=== PATIENT | female | born 1985 | race Caucasian/White ===

== ENCOUNTER 2018-04-15 07:26 | Emergency (ER) | payer OTHER ==
[~2018-04-15] VITALS: Ht 149.9 cm; Wt 45.3 kg
[2018-04-15] MEDS ORDERED: DESO1TAB PO (07:48)
[2018-04-15 08:19] LABS: BASOPHILS # (AUTO) 0.02 x10^3/uL (0-0.1); BASOPHILS % (AUTO) 0 % (0-1); EOSINOPHILS # (AUTO) 0.19 x10^3/uL (0-0.4); EOSINOPHILS % (AUTO) 3 % (1-7); LYMPHOCYTES # (AUTO) 2.64 x10^3/uL (1-3.4); LYMPHOCYTES % (AUTO) 43 % (22-44); MD NO; MEAN CORPUSCULAR HEMOGLOBIN 31.4 pg (27.0-34.8); MEAN CORPUSCULAR VOLUME 92.3 fL (80-100); MEAN PLATELET VOLUME 9.1 fL (7.4-10.4); MONOCYTES # (AUTO) 0.51 x10^3/uL (0.2-0.8); MONOCYTES % (AUTO) 8 % (2-9); NEUTROPHILS # (AUTO) 2.75 x10^3/uL (1.8-6.8); NEUTROPHILS % (AUTO) 45 % (42-75); PLATELET COUNT 227 x10^3/uL (130-400); RED BLOOD COUNT 4.55 x10^6/uL (3.82-5.3); RED CELL DISTRIBUTION WIDTH 13.5 % (9.6-15.2)
[2018-04-15 08:24] LABS: HCG UR SG 1.006 (1.003-1.030)
[2018-04-15 08:30] LABS: ALBUMIN 3.5 g/dL (3.4-5.0); ANION GAP 9 mmol/L (5-15); CALCIUM 8.3 mg/dL (8.5-10.1); CHLORIDE 106 mmol/L (98-107); CREATININE 1.01 mg/dL (0.55-1.02)
[2018-04-15] MEDS ORDERED: OMNIPAQUE 350 MG/ML, 100ML BOTTLE ONE (09:43)
[2018-04-15 09:56] VITALS: BP 148/95
== END 2018-04-15 11:00 | disposition home or self-care (01) ==
LOC: ED 08:12
DX: R10.33 Periumbilical pain (principal)
CPT/HCPCS: 36415; 74177; 80048; 81025; 82040; 85025; 99285; Q9967

== ENCOUNTER 2018-07-16 08:04 | Day surgery (SDC) | payer OTHER ==
[~2018-07-16] VITALS: Ht 149.9 cm; Wt 47.0 kg
[~2018-07-16 08:04] MED LIST: DESO1TAB PO
[2018-07-16] MEDS ORDERED: LACTATED RINGERS 1,000 ML IV SCH (08:24)
[2018-07-16 08:25] VITALS: BP 155/98
[2018-07-16 09:04] LABS: HCG UR SG 1.018 (1.003-1.030)
[2018-07-16] MEDS ORDERED: FENTANYL PF 250 MCG/5ML ONE (09:07)
[2018-07-16] MEDS ORDERED: MIDAZOLAM 1 MG/ML, 2ML ONE (09:07)
[2018-07-16] MEDS ORDERED: BUPIVACAINE/PF-EPI 0.5% 1:200K ONE (09:31)
[2018-07-16] MEDS ORDERED: PROPOFOL 100 ML ONE (09:48)
[2018-07-16] MEDS ORDERED: KETAMINE 50 MG/ML, 10ML ONE (09:56)
[2018-07-16] MEDS ORDERED: SUCCINYLCHOLINE 20 MG/ML, 10ML ONE (10:10)
[2018-07-16] MEDS ORDERED: ROCURONIUM 10 MG/ML,10ML ONE (10:10)
[2018-07-16] MEDS ORDERED: GLYCOPYRROLATE 0.2MG/1ML, 5ML ONE (10:10)
[2018-07-16] MEDS ORDERED: ONDANSETRON 2MG/ML, 2ML ONE (10:10)
[2018-07-16] MEDS ORDERED: CEFAZOLIN 1,000 MG ONE (10:10)
[2018-07-16] MEDS ORDERED: NEOSTIGMINE 1 MG/ML, 10ML ONE (10:10)
[2018-07-16] MEDS ORDERED: DEXAMETHASONE 4 MG/ML, 1ML ONE (10:10)
[2018-07-16] MEDS ORDERED: LABETALOL 5MG/ML, 20ML ONE (10:10)
[2018-07-16] MEDS ORDERED: ONDANSETRON ODT 8 MG PO PRN (10:30)
[2018-07-16] MEDS ORDERED: MEPERIDINE/PF 25MG/0.5ML IVPush PRN (10:30)
[2018-07-16] MEDS ORDERED: ACETAMINOPHEN 325 MG TABLET PO PRN (10:30)
[2018-07-16] MEDS ORDERED: LORazepam 2 MG/ML, 1ML IVPush PRN (10:30)
[2018-07-16] MEDS ORDERED: ONDANSETRON 2MG/ML, 2ML IV PRN (10:30)
[2018-07-16] MEDS ORDERED: FENTANYL PF 100 MCG/2ML ONE ×2 (11:32→12:29)
[2018-07-16] MEDS ORDERED: SUGAMMADEX 200 MG/2 ML IVPush ONE (11:37)
[2018-07-16] MEDS ORDERED: OXYcodone 5 MG/5 ML ORAL.SOL UDC ONE ×2 (12:29→13:42)
[2018-07-16] MEDS ORDERED: hydrALAzine 20 MG/ML, 1ML ONE (12:37)
[2018-07-16] MEDS: FENTANYL PF 100 MCG/2ML IV PRN ×4 (12:53→13:19)
[2018-07-16] MEDS: OXYcodone 5 MG/5 ML ORAL.SOL UDC PO PRN ×2 (13:01→13:43)
[2018-07-16] MEDS ORDERED: HYDROmorphone 1 MG/ML, 1ML ONE (13:21)
[2018-07-16] MEDS: HYDROmorphone 2 MG/ML, 1ML IVPush PRN ×3 (13:25→13:50)
[2018-07-16] MEDS ORDERED: KETOROLAC 30 MG/1 ML ONE (14:37)
[2018-07-16] MEDS ORDERED: morphine SULFATE 10 MG/ML, 1ML IVPush PRN (15:00)
[2018-07-16] MEDS ORDERED: KETOROLAC 30 MG/1 ML IVPush PRN (15:00)
== END 2018-07-16 16:30 | disposition home or self-care (01) ==
LOC: OUT 08:04
PROVIDERS: ATTEND Surgery
DX: K42.9 Umbilical hernia without obstruction or gangrene (principal)
CPT/HCPCS: 49652; 81025; C1781; J0330; J0690; J1100; J1170; J1885; J2250; J2270; J2405; J2704; J2710; J3010; J3490; J7120

== ENCOUNTER → 2018-10-21 | Outpatient (CLI) | payer OTHER ==
[2018-10-21 13:30] LABS: MEAN CORPUSCULAR HEMOGLOBIN 31.5 pg (27.0-34.8); MEAN CORPUSCULAR HGB CONC 34.7 g/dL (32.4-35.8); MEAN CORPUSCULAR VOLUME 90.8 fL (80-100); MEAN PLATELET VOLUME 9.5 fL (7.4-10.4); PLATELET COUNT 219 x10^3/uL (130-400); RED BLOOD COUNT 4.37 x10^6/uL (3.82-5.3); RED CELL DISTRIBUTION WIDTH 13.7 % (9.6-15.2)
[2018-10-21 13:40] LABS: ALANINE AMINOTRANSFERASE 21 U/L (12-78); ALBUMIN 3.5 g/dL (3.4-5.0); ANION GAP 5 mmol/L (5-15); CALCIUM 8.8 mg/dL (8.5-10.1); CHLORIDE 109 mmol/L (98-107)
[2018-10-21 13:43] LABS: ALKALINE PHOSPHATASE 45 U/L (45-117); BILIRUBIN,TOTAL 0.2 mg/dL (0.2-1.0); TOTAL PROTEIN 6.7 g/dL (6.4-8.2)
== END | disposition home or self-care (01) ==
LOC: LAB 13:03
PROVIDERS: ATTEND Clinical Nurse Specialist Women's Health
DX: Z13.1 Encounter for screening for diabetes mellitus (principal); Z13.820 Encounter for screening for osteoporosis; Z20.2 Contact with and (suspected) exposure to infections with a predominantly sexual mode of transmission
CPT/HCPCS: 36415; 80053; 85027; 86592; 86803; 87340; 87806; G0475

== ENCOUNTER 2019-01-18 03:15 | Emergency (ER) | payer OTHER ==
[~2019-01-18] VITALS: Ht 149.9 cm; Wt 45.0 kg
[2019-01-18 03:19] VITALS: BP 168/109
== END 2019-01-18 04:07 | disposition home or self-care (01) ==
LOC: ED 03:48
DX: N39.0 Urinary tract infection, site not specified (principal)
CPT/HCPCS: 81001; 81025; 87077; 87086; 87186; 99283

== ENCOUNTER 2020-08-11 22:18 | Emergency (ER) | payer OTHER ==
[~2020-08-11] VITALS: Ht 149.9 cm; Wt 44.0 kg
[2020-08-11 22:24] VITALS: BP 153/119
--- NOTE | 2020-08-11 23:00 | NUR ---
Patient given discharge instructions and they have confirmed that they understand the instructions. Patient ambulatory with steady gait.
== END 2020-08-11 23:03 | disposition home or self-care (01) ==
LOC: ED 22:57
DX: L03.031 Cellulitis of right toe (principal); Z72.9 Problem related to lifestyle, unspecified
CPT/HCPCS: 99283